=== PATIENT | male | born 1940 | race Caucasian/White ===

== ENCOUNTER 2022-05-09 10:05 | Emergency (ER) | payer MEDICARE, SELFPAY ==
--- NOTE | ~2022-05-09 | CT_ITS ---
EXAMINATION: CT abdomen pelvis w con DATE: 05/09/2022 13:38 INDICATION: Abdominal pain. Left groin lump. TECHNIQUE: Computed tomography (CT) of the abdomen and pelvis was performed with 100 CC Omnipaque 350 intravenous contrast. Automated exposure control and iterative reconstruction technique were employe d. Exam dose: 184.42 mGy-cm total exam DLP. COMPARISON: 05/09/2015 Limited abdominal ultrasound examination 10/12/2012 CT abdomen pelvis FINDINGS: No consolidation at the lung bases. Heart size is within upper normal range. No pericardial or pleural effusion. The gallbladder is present. No gallbladder wall thickening or pericholecystic fluid or fat stranding. No hepatic, splenic or pancreatic space-occupying mass lesion. Normal morphology of the adrenal glands. Occasional bilateral renal cysts, measuring up to 1.7 cm max imal dimension. Approximately 4 mm nonobstructing right renal calculus. Possible subtle pinpoint upper pole left anali l calculus. Approximately 3 x 4 mm probable lower pole nonobstructing left renal calculus. No ureteral calculus or hydroureteronephrosis. There is extensive calcification of the abdominal aorta and iliac arteries. No abdominal aortic aneur ysm. No intraperitoneal or retroperitoneal or pelvic mass lesion or adenopathy or ascites. There is prostate enlargement and calcification. There is mild to moderate diffuse bladder wall thick ening consistent with bladder outlet obstruction from the prostate enlargement. There are numerous diverticula of the sigmoid and to a lesser extent descending colon. No CT evidence of diverticulitis. No evidence of appendicitis. No bowel obstruction, bowel wall thickening, pneumatosis or intraperiton eal free air. Bilateral small fat-containing inguinal hernias. Occasional bilateral small nonenlarged groin lymph nodes. Small fat-containing umbilical hernia. No suspicious osteolytic or osteoblastic lesions. IMPRESSION: Bilateral small fat-containing inguinal hernias and small fat-containing umbilical herni a Occasional small nonenlarged bilateral groin lymph nodes Occasional bilateral renal cysts Mild bilateral nonobstructive nephrolithiasis Prostate enlargement and calcification Diverticulosis of the left colon; no evidence of diverticulitis Normal appendix Reviewed, dictated and finalized at [facility]. Reviewed, dictated and finalized at [facility]. CTOR PLANS IMPRESSION: Bilateral small fat-containing inguinal hernias and small fat-cont aining umbilical hernia Occasional small nonenlarged bilateral groin lymph nodes Occasional bilateral renal cysts Mild bilateral nonobstructive nephrolithiasis Prostate enlargement and calcification Diverticulosis of the left colon; no evidence of diverticulitis Normal appendix
[2022-05-09 11:01] VITALS: BP 136/70; PULSE 78; RESP 18; TEMP 36.8; O2SAT 99
--- NOTE | 2022-05-09 12:34 | ED.ABDPAIN ---
HPI - Abdominal Pain General Chief Complaint: Abdominal Pain Stated Complaint: lower abd pain Time Seen by Provider: 05/09/22 12:06 Source: RN notes reviewed History of Present Illness HPI narrative: Patient presents emergency room from home for left lower quadrant abdominal pain. Patient states he noticed the symptoms approximately 10 days ago while he was vacuuming. He states that he began to notice a lump down his left lower abdomen states that the lump has been there for approximately 3 days then had improved in size but will get larger when he stands up and improves and he lays down flat states the area is tender to palpation. States he has had a previous procedure for his prostate and was worried that it was a lump from that procedure he denies any fevers or chills nausea vomiting diarrhea but does state he does feel gassy at times Related Data Allergies Allergy/AdvReac Type Severity Reaction Status Date / Time Sulfa (Sulfonamide Allergy Unknown Verified 02/19/17 15:40 Antibiotics) Review of Systems Review of Systems: Gen.: Denies fevers or chills ENT: Denies congestion Respiratory: Denies shortness of breath or cough CV: Denies chest pain or palpitations GI: See HPI denies burning, urgency, frequency or hematuria Musculoskeletal: Denies back pain or muscle pain Neuro: Denies numbness, tingling, weakness or focal weakness Skin: Denies rash Except as documented, all other systems reviewed and negative [facility] Past Medical History Medical History (Updated 05/09/22 @ 14:26 by Humberto Orr DO) CAD in [place] artery GERD without esophagitis Family History Family History (Updated 02/19/17 @ 15:48 by DOCTOR UNKNOWN) Mother Family history of cardiovascular disease Social History Social History Smoking status: Former smoker Smoking end date: 06/23/1962 Alcohol intake: never Exam Narrative: APPEARANCE: No acute distress, nontoxic, resting in bed EYES: EOMI HEENT: Normocephalic, atraumatic, OMM RESPIRATORY: No respiratory distress Clear to auscultation bilaterally with no rhonchi wheezing or rales. CARDIOVASCULAR: Regular rate and rhythm without murmurs rubs or gallops. ABDOMINAL: Soft, nondistended tender palpation left lower quadrant no tenderness left upper quadrant, right upper quadrant right lower quadrant no rebound or guarding, left inguinal hernia palpated that is easily reducible and soft MUSCULOSKELETAl: Moves all extremities. No clubbing, cyanosis or edema. NEURO: Awake and alert. Following commands, speech normal, no focal deficits SKIN:: Warm, dry. No rashes lesions or abrasions PSYCHIATRIC: Normal affect/mood, Course Course Emergency Course: Discussed with patient results of workup and diagnosis. Discussed need for follow-up with primary care, proper use of medication, and reasons to return to the emergency department. Patient understands and agrees to current treatment plan Vital Signs Vital signs: Vital Signs Temperature 98.2 F 05/09/22 11:01 Pulse Rate 78 05/09/22 11:01 Respiratory Rate 18 05/09/22 11:01 Blood Pressure 136/70 05/09/22 11:01 Pulse Oximetry 99 05/09/22 11:01 Oxygen Delivery Room Air 05/09/22 11:01 Temperature 98.2 F 05/09/22 11:01 Pulse Rate 78 05/09/22 11:01 Respiratory Rate 18 05/09/22 11:01 Blood Pressure 136/70 05/09/22 11:01 Pulse Oximetry 99 05/09/22 11:01 Oxygen Delivery Room Air 05/09/22 11:01 MDM - Abdominal Pain Lab Data Result diagrams: 05/09/22 12:41 05/09/22 12:41 Labs: Lab Results 05/09/22 05/09/22 Range/Units 12:41 12:41 WBC 7.4 (4.5-10.0) K/mm3 RBC 4.46 L (4.6-6.20) M/mm3 Hgb 13.4 L (14.0-18.0) g/dL Hct 42.2 (42.0-52.0) % MCV 94.6 (80-100) fl MCH 30.0 (26-34) pg MCHC 31.8 L (32-36) g/dl RDW 12.9 (11.5-14.5) % Plt Count 266 (150-375) k/mm3 MPV 9.6 (7.4-10
[2022-05-09 12:46] LABS: Basophils Absolute Auto 0.1 K/mm3 (0.0-0.1); Basophils Percent Auto 1.1 % (0.2-1.2); Eosinophils Absolute Auto 0.2 K/mm3 (0-0.3); Eosinophils Percent Auto 2.3 % (0-4.4); Hematocrit 42.2 % (42.0-52.0); Hemoglobin 13.4 g/dL (14.0-18.0); Immature Granulocyte Absolute 0.02 K/mm3 (0.00-0.031); Immature Granulocyte Percent A 0.3 % (0-0.5); Lymphocytes Absolute Auto 1.75 K/mm3 (0.9-3.2); Lymphocytes Percent Auto 23.8 % (18.3-44.2); Mean Corpuscular HGB Conc 31.8 g/dl (32-36); Mean Corpuscular Volume 94.6 fl (80-100); Mean Platelet Volume 9.6 fl (7.4-10.4); Monocytes Absolute Auto 0.6 K/mm3 (0.1-0.6); Monocytes Percent Auto 7.9 % (2.6-8.5); Neutrophils Absolute Auto 4.8 K/mm3 (1.3-6.7); Neutrophils Percent Auto 64.6 % (45.5-73.1); Platelet Count Result 266 k/mm3 (150-375); Red Blood Count 4.46 M/mm3 (4.6-6.20); Red Cell Distribution Width 12.9 % (11.5-14.5); White Blood Count 7.4 K/mm3 (4.5-10.0)
[2022-05-09 12:55] LABS: Alanine Aminotransferase 20 U/L (6-50); Albumin Level 5.1 g/dL (3.5-5.1); Alkaline Phosphatase 110 U/L (38-126); Anion Gap 16 mmol/L (8-16); Aspartate Amino Transferase 38 U/L (17-59); Bilirubin,Total 0.6 mg/dL (0.2-1.3); Blood Urea Nitrogen 13 mg/dL (9-20); Carbon Dioxide 28 mmol/L (22-30); Chloride 98 mmol/L (98-107); Estimated CRCL calculation 58 ml/min; Estimated Glomerular Filt Rate > 60; Glucose 104 mg/dL (65-110); Lipase 61 U/L (23-300); Potassium 4.1 mmol/L (3.4-5.0); Sodium 142 mmol/L (137-145)
[2022-05-09 13:00] VITALS: BP 159/83; PULSE 64; RESP 16; O2SAT 100
[2022-05-09 14:45] VITALS: BP 138/72; PULSE 55; RESP 18; O2SAT 100
[2022-05-09 14:47] LABS: Appearance Urine Clear (Clear); Bilirubin Urine Negative (Negative); Blood Urine Trace-intact (Negative); Color Urine Yellow (Yellow); Glucose Urine UA Negative (Negative); Ketones Urine Negative (Negative); Leukocyte Esterase Ur Negative LEU/UL (Negative); Nitrate Urine Negative (Negative); Protein Urine Negative (Negative); Urobilinogen Urine 0.2 mg/dL (<2.0)
[2022-05-09 14:58] LABS: Mucus Urine Rare /lpf; RBC Urine 0-2 /hpf (0-2); Squamous Epithelial Cell Urine Rare /hpf (Few); WBC Urine 0-3 /hpf
[2022-05-09 15:07] LABS: Add Urine Microscopic? YES
== END 2022-05-09 15:49 | disposition home or self-care (01) ==
PROVIDERS: Emergency Provider Emergency Medicine
DX: K40.20 Bilateral inguinal hernia, without obstruction or gangrene, not specified as recurrent (principal); I25.10 Atherosclerotic heart disease of native coronary artery without angina pectoris; K21.9 Gastro-esophageal reflux disease without esophagitis
CPT/HCPCS: 36415; 74177; 80053; 81001; 83690; 85025; 99284; Q9967

== ENCOUNTER 2022-05-22 10:08 | Outpatient (CLI) | payer MEDICARE, SELFPAY ==
--- NOTE | 2022-05-22 10:32 | ECG_ITS ---
Measurements Intervals [place] Rate: 73 P: 76 IA: 116 QRS: 9 QRSD: 95 T: 89 QT: 368 QTc: 408 Interpretive Statements SINUS RHYTHM WITH SINUS ARRHYTHMIA WITH SHORT IA INTERVAL RSR' IN V1 OR V2, CONSIDER RIGHT VENTRICULAR HYPERTROPHY OR RIGHT VCD LEFT VENTRICULAR HYPERTROPHY AND ST-T CHANGE BORDERLINE ST-T WAVE ABNORMALITY- INF/HIGH LAT LEADS BASELINE ARTIFACT- I, II, AVR, AVL BORDERLINE ECG NO PREVIOUS ECG AVAILABLE FOR COMPARISON Electronically Signed On 05-22-2022 12:37:43 FACILITIES MANAGEMENT EXECUTIVE by Michael Rangel D.O.
== END 2022-05-22 10:09 | disposition home or self-care (01) ==
PROVIDERS: Visit Provider Surgery
DX: I25.10 Atherosclerotic heart disease of native coronary artery without angina pectoris (principal); R94.31 Abnormal electrocardiogram [ECG] [EKG]
CPT/HCPCS: 93005

== ENCOUNTER 2022-08-01 08:19 | Outpatient (CLI) | payer MEDICARE, SELFPAY ==
[2022-08-01 09:43] LABS: Cholesterol 241 mg/dL (0-200); HDL Direct 52 mg/dL; Triglycerides 66 mg/dL (<150)
[2022-08-01 09:54] LABS: LDL Cholesterol Direct 148 mg/dL
== END 2022-08-01 08:20 | disposition home or self-care (01) ==
LOC: ANHLAB 08:21
PROVIDERS: Visit Provider Internal Medicine Cardiovascular Disease
DX: E78.5 Hyperlipidemia, unspecified (principal)
CPT/HCPCS: 36415; 80061

== ENCOUNTER 2022-08-14 09:55 | Outpatient (CLI) | payer MEDICARE, SELFPAY ==
--- NOTE | ~2022-08-14 | US_ITS ---
EXAMINATION: US carotid duplex BI DATE: 08/14/2022 11:04 INDICATION: Other specified symptoms and signs of carotid artery disease TECHNIQUE: Grayscale, color Doppler, and pulsed Doppler images of the cervical carotid arteries were obtained. The degree of vessel stenosis is placed in one of the following categories: normal, <50%, 5 0-69%, >=70% but less than near-occlusion, near-occlusion, or total occlusion. Note that percent sten osis relative to normal distal artery lumen diameter is indirectly measured from velocity measurement s as described by Ty, et al. Radiology 2003; 229:340-346. Notes: Normal: Peak systolic velocity <125 centimeters/sec and no plaque <50%. Peak systolic velocity <125 ( EDV <40; ICA/CCA PSV ratio <2.0; used these factors only a tandem lesions or low cardiac output or co ntralateral disease) 50-69 %: PSV 125-230 (EDV 40-100; ratio 2-4) >= 70% but less than near occlusion: PSV greater than 230 (EDV > 100; ratio> 4.0) Near Occlusion: PSV that is variable; markedly narrowed lumen Occlusion: Absent flow on color/spectral Doppler and no lumen on lr scale. COMPARISON: None. FINDINGS: RIGHT: The right common carotid artery (CCA) peak systolic velocity (PSV) is 122 cm/s. The right internal ca rotid artery (ICA) PSV is 121 cm/s. The right ICA end-diastolic velocity (EDV) is 27 cm/s. The right ICA/CCA PSV ratio is 1.0. The external carotid artery (ECA) PSV is 145 cm/s. There is antegrade flow in the right vertebral artery. LEFT: The left CCA PSV is 100 cm/s. The left ICA PSV is 95 cm/s. The left ICA EDV is 26 cm/s. The left ICA/ CCA PSV ratio is 0.9. The ECA PSV is 45 cm/s. There is antegrade flow in the left vertebral artery. IMPRESSION: 1. Less than 50% stenosis in the right internal carotid artery by sonographic criteria. 2. Less than 50% stenosis in the left internal carotid artery by sonographic criteria. Reviewed, dictated and finalized at location [facility]. E TENDER IMPRESSION: 1. Less than 50% stenosis in the right internal carotid artery by sonographic c ana rosa. 2. Less than 50% stenosis in the left internal carotid artery by sonographic cr brice.
== END 2022-08-14 09:56 | disposition home or self-care (01) ==
PROVIDERS: Visit Provider Internal Medicine Cardiovascular Disease
DX: R09.89 Other specified symptoms and signs involving the circulatory and respiratory systems (principal); I65.23 Occlusion and stenosis of bilateral carotid arteries
CPT/HCPCS: 93880

== ENCOUNTER 2022-09-12 08:08 | Outpatient (CLI) | payer MEDICARE, SELFPAY | END 2022-09-12 08:09 | disposition home or self-care (01) | PROVIDERS: Visit Provider Surgery | DX: K40.20 Bilateral inguinal hernia, without obstruction or gangrene, not specified as recurrent (principal); Z01.818 Encounter for other preprocedural examination | CPT/HCPCS: 36415; 86850; 86900; 86901 ==

== ENCOUNTER 2022-09-17 01:28 | Day surgery (SDC) | payer MEDICARE, SELFPAY ==
--- NOTE | 2022-09-06 15:21 | PC.NURSE ---
Report to the Outpatient Waiting Room, entrance under the green pavilion located off [facility], at time __0800 on date _09/17/22 . Planned Procedure Time: __1000 . Time changes happen often and if your time is changed the preop area will call you the afternoon before. - You and your visitor will be asked to self-screen and do not enter if you have any COVID symptoms. - Only one visitor is requested with a max of two and NO children visitors are allowed at this time. - The patient visitor may be requested to leave or wait in car when not with patient due to distancing restrictions. - A mask is optional within the hospital at this time. Patients may have clear liquids (water, carbonated beverages, clear teas, apple juice) until 3 hours prior to surgery with a maximum of 20 ounces. - No food from midnight until time of surgery - Infants may have breast milk until 4 hours before surgery, infant formula 6 hours prior to surgery. - Children will be allowed to drink immediately following surgery. If applicable, please bring a bottle or sippy cup to assist with drinking. Juice, water, soda, and popsicles are readily available. For infants on formula, please bring formula the day of surgery. Pacifiers are allowed. Take the following medications with a SIP of water the morning of surgery: ___NONE DO NOT STOP ANY OF YOUR OTHER PRESCRIPTION MEDICATIONS PRIOR TO SURGERY ?EXCEPT THE FOLLOWING Medications to discontinue per physician ALL VITAMINS 3 DAYS PRE OP .LAST DOSE 09/13/22 HIBICLENS SHOWER MORNING OF SURGERY Please no make-up, nail indonesian, hairspray, perfume, deodorant, or body powder the day of surgery. No jewelry (including any body piercings) or valuables the day of surgery, leave them at home. Please take a shower or bath the night before, or the morning of, surgery with an antibacterial soap. Wear comfortable, loose fitting clothing. Children are encouraged to wear pajamas. - Jewelry must be removed prior to entering the operating room. Rings and piercings that are not removed may be cut off. - The hospital will not accept responsibility for valuables. - Please leave all valuables, including medications, at home the day of surgery. If you are going home after surgery, a licensed commercial driver's license driver must drive you home. - NO public transportation without another adult if you receive anesthesia. - We recommend that an adult stay with you for 24 hours following discharge. - We also recommend that you do not drive, make important decision, drink alcoholic beverages, or take any drugs that were not prescribed by your health care provider for at least 24 hours after your discharge time. For Pediatric surgeries, we recommend two adults accompany the child home. Follow any additional instructions given to you from your surgeon. If you or anyone in your household have experienced Covid symptoms in the past week, please notify your surgeon or the nurse liaison at the phone number below for possible testing. Telephone instructions given to __GRANDDAUGHTER YVONNE JAIN and asked if any additional questions and then verbalized understanding. Patient advised to call surgeon office or pre surgery nurse liaison [phone] if any additional questions.
[2022-09-06 15:29] VITALS: BMI 19.5
[2022-09-17] VITALS (12 sets, daily range): BP systolic 148–186; BP diastolic 69–100; PULSE 77–100; RESP 14–18; TEMP 36.6–36.7; O2SAT 93–100
--- NOTE | 2022-09-17 08:32 | P.PNAN_ITS ---
Anes - Initial Pre Proc Eval Procedure: Operation Date: 09/17/22 10:00 Proposed Procedures p Bilateral Laparoscopic Inguinal Hernia Repair with Mesh, Davinci Assisted - Fredi Betancourt DO Date/Time: 09/17/22 08:32 Surgeon: Fredi Betancourt DO Pre Op Diagnosis: Bilateral Inguinal Hernia Patient Data Age: 81 Gender: M Height: 1.73 m Weight: 58.1 kg Allergies Allergy/AdvReac Type Severity Reaction Status Date / Time Sulfa (Sulfonamide Allergy Unknown Itching/HIV Verified 09/06/22 15:10 Antibiotics) ES Home Medications Medication Instructions Recorded Confirmed Type apple cider vinegar 500 mg tablet 500 mg PO DAILY 07/31/22 09/06/22 History aspirin 81 mg tablet,delayed 81 mg PO DAILY 07/31/22 09/06/22 History release cyanocobalamin (vitamin B-12) 500 250 mcg PO DAILY 07/31/22 09/06/22 History mcg tablet niacin 500 mg tablet 500 mg PO DAILY 07/31/22 09/06/22 History ezetimibe 10 mg tablet 10 mg PO DAILY #30 tabs 08/02/22 09/06/22 Rx Patient hx anesthesia problems: none Family hx anesthesia problems: none Results Review: All pre-operative results and documents have been reviewed as part of the pre- operative evaluation. [facility] Past Medical History Medical History CAD in [place] artery GERD without esophagitis Family History Family History Mother Family history of cardiovascular disease Social History Social History Smoking packs per day: 1 Smoking cigarettes per day: 20.0 Years smoked: 10 Smoking pack-years: 10.00 Smoking status: Former smoker Tobacco type: cigarettes Smoking end date: 06/23/62 Alcohol intake: never Living arrangements: with family Spiritual care concerns: No Anes - Eval Final PreProcedure Day of Procedure 09/17/22 08:32 Patient weight: thin Heart: regular rate and rhythm Lungs: decreased breath sounds Airway: Mallampati scale class II Neurological: other (alert hard of hearing) Last oral intake: >/= 8 hours ASA classification: III Emergent: no Anesthetic plan: proceed Anesthesia type and monitoring: general ETT and standard monitoring Results Review: All pre-operative results and documents have been reviewed as part of the pre- operative evaluation. Informed Consent: The patient's anesthetic plan and its attendant risks and benefits were discussed with the patient/family/POA. Questions were solicited and answers provided to the satisfaction of the patient/family/POA.
[2022-09-17] MEDS: KETOROLAC 15 MG/ML VIAL (*BKC) IV PUSH (08:45)
[2022-09-17] MEDS: ACETAMINOPHEN 500 MG TABLET 1000 MG PO (08:45)
[2022-09-17] MEDS: LACTATED RINGERS 1,000 ML 30 ML IV CONT ×3 (08:45→13:44)
--- NOTE | 2022-09-17 10:13 | WPDHPUPDATE1 ---
History and Physical Update Update Date/Time: 09/17/22 10:13 History and Physical has been reviewed, including an updated exam of the patient. There are NO changes in the patient's condition. Risks, benefits, and alternatives have been discussed and questions answered. Patient agrees to proceed with procedure.
--- NOTE | 2022-09-17 10:13 | PM.IMHP ---
H&P: HPI History of Present Illness Date/Time: 09/17/22 10:13 Chief Complaint: Bilateral inguinal hernia Narrative: This is an 81-year-old man who presents for bilateral inguinal hernia repair. He reports no changes since last seen office. Review of Systems Review of Systems: All systems reviewed & are unremarkable except as noted in HPI and below Constitutional: Constitutional: Denies chills, Denies fever(s), Denies headache(s) and Denies weight loss Eyes: Eyes: Denies change in vision ENT: Denies dizziness, Denies headache(s), Denies neck mass and Denies throat swelling Cardiovascular: Cardiovascular: Denies chest pain, Denies lightheadedness and Denies dyspnea Respiratory: Respiratory: Denies cough, Denies dyspnea and Denies wheezing Gastrointestinal: Gastrointestinal: Denies abdominal pain, Denies change in bowel habits, Denies nausea and Denies vomiting Genitourinary: Genitourinary: Denies hematuria and Denies dysuria Musculoskeletal: Musculoskeletal: Reports as per HPI Integumentary/Breasts: Skin/Breast: Reports as per HPI Neurologic: Denies dizziness and Denies headache(s) Allergic/Immunologic: Allergic/Immunologic: Denies throat swelling and Denies wheezing PMFSH Past Medical History Medical History CAD in [place] artery GERD without esophagitis Family History Family History Mother Family history of cardiovascular disease Social History Social History Smoking packs per day: 1 Smoking cigarettes per day: 20.0 Years smoked: 10 Smoking pack-years: 10.00 Smoking status: Former smoker Tobacco type: cigarettes Smoking end date: 06/23/62 Alcohol intake: never Living arrangements: with family Spiritual care concerns: No Meds Home Medications and Allergies Home Medications Medication Instructions Recorded Confirmed Type apple cider vinegar 500 mg tablet 500 mg PO DAILY 07/31/22 09/06/22 History aspirin 81 mg tablet,delayed 81 mg PO DAILY 07/31/22 09/06/22 History release cyanocobalamin (vitamin B-12) 500 250 mcg PO DAILY 07/31/22 09/06/22 History mcg tablet niacin 500 mg tablet 500 mg PO DAILY 07/31/22 09/06/22 History ezetimibe 10 mg tablet 10 mg PO DAILY #30 tabs 08/02/22 09/06/22 Rx Allergies Allergy/AdvReac Type Severity Reaction Status Date / Time Sulfa (Sulfonamide Allergy Unknown Itching/HIV Verified 09/17/22 08:48 Antibiotics) ES Vital Signs Vital Signs - 24 hr 09/17/22 08:43 Temperature 36.7 C Pulse Rate 79 Respiratory Rate 14 Blood Pressure 164/69 H Pulse Oximetry 99 Oxygen Delivery Room Air Exam Const: General: no acute distress and alert Orientation/consciousness: patient oriented x3 HENMT: Head: normocephalic and atraumatic Ears: hearing grossly normal bilaterally Face/Nose/Sinus: Normal nares present Mouth: Yes Normal oral and palatal mucosa present Eyes: Periorbital: periorbital findings normal Sclera: sclerae normal EOM: EOMs intact bilaterally Neck: Neck: normal visual inspection, no lymphadenopathy and trachea midline Chest: Chest palpation & inspection: normal inspection of the chest Resp: Effort & Inspection: normal respiratory effort Auscultation: clear to auscultation bilaterally Cardio: Jugular venous distension: no JVD Rate: regular rate Rhythm: regular rhythm Heart sounds: S1 normal heart sound present and S2 normal heart sound present Peripheral pulses: Peripheral pulses 2+ throughout GI: Inspection: normal to inspection GI Palp: Yes Soft to palpation, No Tenderness to palpation present (GI), No Guarding due to palpation present (GI) and No Rebound tenderness present Percussion: Yes normal to percussion Auscultation: normal bowel sounds : General: Yes no CVA tenderness Scrotum: inguinal hernia bilateral Back/Spine/Pelvis
[2022-09-17] MEDS: ceFAZolin 2 GM/D5W 50 ML 2 GM/50 ML BAG IVPB (10:41)
[2022-09-17] MEDS: BUPIVACAINE/EPINEPHRINE 0.25% 50 ML VIAL 30 ML INFILTRATE (11:09)
--- NOTE | 2022-09-17 12:17 | W.PM.PROC2 ---
Procedure Note - Detailed Date of Procedure 09/17/22 Pre-op Diagnosis Bilateral Inguinal Hernia Post-op Diagnosis Same (Bilateral direct inguinal hernia) Procedure Performed Laparoscopic bilateral inguinal hernia repair with mesh, da Shazia assisted Surgeon Fredi Betancourt DO Anesthesia General and Local (0.5% bupivacaine with epinephrine) Indications This is an 81-year-old man who presented with bilateral inguinal hernias. He initially began noting left groin pain and a bulge and had to lay down and push it back in to reduce it. He went to the emergency department [address] showed evidence of bilateral inguinal hernias. He was found to have bilateral reducible inguinal hernias on physical exam. Discussions were made with the patient about treatment options and decision was made to proceed with robotic assisted laparoscopic bilateral inguinal hernia repair with mesh. Findings Laparoscopic bilateral hernia repair was performed. Patient was found to have bilateral direct inguinal hernias. A robotic transabdominal preperitoneal approach was utilized for repair. A wide preperitoneal pocket was created on each side and the hernia sac was reduced. Large 3DMax mid mesh was placed over each side overlying the entire myopectineal orifice. No specimens were obtained for pathology. Description of Procedure Procedure as well as risks, benefits, and alternatives were discussed with the patient. Written consent was obtained and placed in chart prior to procedure. Patient was brought back to surgical suite. He was placed supine on operating table. Time-out was done to confirm patient and procedure. He was then intubated by Anesthesia Department. His abdomen was prepped and draped in sterile fashion using chlorhexidine prep. 0.5% bupivacaine with epinephrine was infiltrated at each location for incision. A 12 millimeter transverse incision was made just superior to the umbilicus using a 15 blade scalpel. Blunt dissection was carried out down to the linea alba. A vertical incision was made at the linea alba using a 15 blade scalpel. The peritoneum was then bluntly entered. A 12 millimeter trocar was inserted and carbon dioxide insufflation was used to create a pneumoperitoneum. A camera was inserted and the abdominal cavity was inspected. The patient was placed in slight Trendelenburg position. An 8 millimeter incision was made on the right lateral abdomen and an 8 millimeter trocar was inserted under direct visualization. Another 8 millimeter incision was made in the left lateral abdomen and an 8 millimeter trocar was inserted under direct visualization. The robotic arms were brought up to the patient's bedside and secured to the ports. The camera and instruments were inserted. I then moved over to the robotic console and took control of the camera and instruments. After careful inspection of the abdominal cavity, I began scoring the peritoneum along the left lower quadrant using scissors with electrocautery. The preperitoneal plane was entered and this was carefully dissected caudally along the inferior epigastric vessels. Careful dissection with scissors with electrocautery and blunt dissection was used to continue this dissection. I dissected far enough laterally to allow for mesh placement, and also dissected medially to identify the pubic arch and Clem's ligament. The hernia sac was identified and carefully dissected posteriorly. The cord contents were also identified and the peritoneum was carefully dissected far enough posteriorly to allow for mesh placement. Once an adequate pocket was created, I then placed the mesh within the preperitoneal pocket and carefully unfolded it. The mesh was centered on the hernia defect with adequate overlap circumferentially. The inferior edge of the mesh was inspected to ensure that it was far enough away from the peritoneal edge. The mesh appeared in proper position overlying the entire myopectinea
[2022-09-17] MEDS: fentaNYL CITRATE INJ (*CRX) 100 MCG/2 ML VIAL 25 MCG IV PUSH ×3 (12:59→13:05)
[2022-09-17] MEDS: ONDANSETRON INJ 4 MG/2 ML VIAL IV PUSH (13:13)
[2022-09-17] MEDS: HALOPERIDOL LACTATE 5 MG/ML VIAL 1 MG IV PUSH (13:34)
== END 2022-09-17 15:30 | disposition home or self-care (01) ==
PROVIDERS: Visit Provider Surgery
PROC: 8E0Y4CZ Robotic Assisted Procedure of Lower Extremity, Percutaneous Endoscopic Approach (ICD-10-PCS; CPT 49650; principal; 2022-09-17 10:00)
DX: K40.20 Bilateral inguinal hernia, without obstruction or gangrene, not specified as recurrent (principal); I25.10 Atherosclerotic heart disease of native coronary artery without angina pectoris; K21.9 Gastro-esophageal reflux disease without esophagitis; Z87.891 Personal history of nicotine dependence; Z79.82 Long term (current) use of aspirin
CPT/HCPCS: 49650; S2900; A9270; C1781; J0690; J1630; J1885; J2405; J2704; J3010; J7120

== ENCOUNTER 2022-11-11 12:12 | Outpatient (CLI) | payer MEDICARE, SELFPAY ==
[2022-11-11 13:09] LABS: Alanine Aminotransferase 15 U/L (6-50); Albumin Level 4.3 g/dL (3.5-5.1); Alkaline Phosphatase 91 U/L (38-126); Anion Gap 4 mmol/L (8-16); Aspartate Amino Transferase 27 U/L (17-59); Bilirubin,Total 0.5 mg/dL (0.2-1.3); Blood Urea Nitrogen 19 mg/dL (9-20); Calcium 8.9 mg/dL (8.4-10.2); Carbon Dioxide 35 mmol/L (22-30); Chloride 97 mmol/L (98-107); Cholesterol 198 mg/dL (0-200); Estimated Glomerular Filt Rate > 60; Glucose 119 mg/dL (65-110); HDL Direct 50 mg/dL; Potassium 4.6 mmol/L (3.4-5.0); Sodium 136 mmol/L (137-145); Triglycerides 113 mg/dL (<150)
[2022-11-11 13:20] LABS: LDL Cholesterol Direct 120 mg/dL
== END 2022-11-11 12:13 | disposition home or self-care (01) ==
PROVIDERS: Visit Provider Internal Medicine Cardiovascular Disease
DX: E78.5 Hyperlipidemia, unspecified (principal)
CPT/HCPCS: 36415; 80053; 80061

== ENCOUNTER 2022-12-08 07:52 | Emergency (ER) | payer MEDICARE, SELFPAY ==
--- NOTE | ~2022-12-08 | XR_ITS ---
XR abdomen/kub 1V DATE: 12/08/2022 09:45 INDICATION: Right ureteral calculus. Right flank pain. TECHNIQUE: 2 supine AP views at approximately 5 mm calcified calculus overlies the right ureter at th e upper L4 level, corresponding to the location of the calculus on current CT abdomen pelvis. COMPARISON: None FINDINGS: An approximately 5 mm calcified calculus overlies the right ureter at the upper L4 level, c orresponding to the location of the calculus on the current CT abdomen pelvis. There is a prominent amount of hematoma rectum and colon. No bowel obstruction is evident. No viscero megaly is detected. There is extensive calcification of the abdominal aorta and iliac arteries. Osteopenia. IMPRESSION: 5 mm calcified calculus at right ureter at upper L4 level Reviewed, dictated and finalized at [facility] Reviewed, dictated and finalized at [facility].
--- NOTE | ~2022-12-08 | CT_ITS ---
EXAMINATION: CT abdomen pelvis wo con DATE: 12/08/2022 08:21 INDICATION: Right flank pain. Nausea, vomiting. History kidney stones. TECHNIQUE: Computed tomography (CT) of the abdomen and pelvis was performed without intravenous contr ast. Automated exposure control and iterative reconstruction technique were employed. Exam dose: 179 .64 mGy-cm total exam DLP. COMPARISON: 05/09/2022 CT abdomen pelvis FINDINGS: The lung bases are clear of infiltrate or consolidation. Heart size is within normal range. No pericardial or pleural effusion. The liver, gallbladder, spleen, pancreas and bile ducts and pancreatic duct appear unremarkable on th is limited noncontrast examination. Occasional bilateral renal cysts. Mild nonobstructive bilateral nephrolithiasis. There is however moderate right hydroureteronephrosis secondary to a 3.8 x 5 x 5.8 mm calculus of the right ureter at the upper L4 level. There is extensive calcification of the abdominal aorta and calcification of celiac, superior mesente nanci, renal and inferior mesenteric as well as bilateral iliac and femoral arteries. No abdominal aort ic aneurysm. No intraperitoneal or retroperitoneal or pelvic mass lesion or adenopathy or ascites. There is prostate enlargement and calcification. There is moderate diffuse thickening of the urinary bladder wall consistent with bladder outlet obstruction due to prostatomegaly. There are numerous diverticula of the colon, especially the sigmoid and descending colon; no CT evide nce of diverticulitis is noted. No bowel obstruction or intraperitoneal free air is detected. Normal appendix. Small fat-containing umbilical hernia. Diffuse osteopenia. Mild degenerative change of the thoracic and lumbar spine. IMPRESSION: Grossly 5.8 mm obstructing calculus of the right ureter at the upper L4 level with moder ate proximal right hydroureteronephrosis Mild bilateral nonobstructive nephrolithiasis Occasional bilateral renal cysts Diverticulosis of the colon Normal appendix Reviewed, dictated and finalized at [facility]. Reviewed, dictated and finalized at [facility]. IMPRESSION: Grossly 5.8 mm obstructing calculus of the right ureter at the upp er L4 level with moderate proximal right hydroureteronephrosis Mild bilateral nonobstructive nephrolithiasis Occasional bilateral renal cysts Diverticulosis of the colon Normal appendix
[2022-12-08 07:59] VITALS: BP 153/84; PULSE 84; RESP 16; TEMP 37; O2SAT 99
[2022-12-08] MEDS: ONDANSETRON INJ 4 MG/2 ML VIAL IV PUSH (08:27)
[2022-12-08 08:30] VITALS: BP 154/77; PULSE 75; RESP 116; O2SAT 99
[2022-12-08 08:32] LABS: Basophils Absolute Auto 0.1 K/mm3 (0.0-0.1); Basophils Percent Auto 0.9 % (0.2-1.2); Eosinophils Percent Auto 0.4 % (0-4.4); Hematocrit 36.8 % (42.0-52.0); Hemoglobin 11.6 g/dL (14.0-18.0); Immature Granulocyte Absolute 0.03 K/mm3 (0.00-0.031); Immature Granulocyte Percent A 0.4 % (0-0.5); Lymphocytes Absolute Auto 1.82 K/mm3 (0.9-3.2); Mean Corpuscular HGB Conc 31.5 g/dl (32-36); Mean Corpuscular Hemoglobin 29.7 pg (26-34); Mean Corpuscular Volume 94.1 fl (80-100); Mean Platelet Volume 10.1 fl (7.4-10.4); Monocytes Absolute Auto 0.7 K/mm3 (0.1-0.6); Neutrophils Percent Auto 65.3 % (45.5-73.1); Platelet Count Result 270 k/mm3 (150-375); Red Blood Count 3.91 M/mm3 (4.6-6.20); Red Cell Distribution Width 12.7 % (11.5-14.5); White Blood Count 7.6 K/mm3 (4.5-10.0)
[2022-12-08 08:57] LABS: Alanine Aminotransferase 17 U/L (6-50); Albumin Level 4.4 g/dL (3.5-5.1); Alkaline Phosphatase 96 U/L (38-126); Anion Gap 9 mmol/L (8-16); Aspartate Amino Transferase 31 U/L (17-59); Bilirubin,Total 0.6 mg/dL (0.2-1.3); Blood Urea Nitrogen 22 mg/dL (9-20); Calcium 9.4 mg/dL (8.4-10.2); Carbon Dioxide 28 mmol/L (22-30); Chloride 99 mmol/L (98-107); Estimated CRCL calculation 51 ml/min; Estimated Glomerular Filt Rate > 60; Glucose 139 mg/dL (65-110); Potassium 4.1 mmol/L (3.4-5.0); Sodium 136 mmol/L (137-145)
[2022-12-08 09:01] LABS: Appearance Urine Clear (Clear); Bacteria Urine None Seen /hpf; Bilirubin Urine Negative (Negative); Blood Urine 3+ (Negative); Color Urine Yellow (Yellow); Glucose Urine UA Negative (Negative); Ketones Urine 1+ mg/dL (Negative); Leukocyte Esterase Ur Trace LEU/UL (Negative); Nitrate Urine Negative (Negative); Protein Urine 1+ mg/dL (Negative); RBC Urine >100 /hpf (0-2); Specific Grav Ur 1.018 (1.001-1.035); Squamous Epithelial Cell Urine None seen /hpf (Few); Urobilinogen Urine 0.2 mg/dL (<2.0); WBC Urine 0-5 /hpf; pH Urine 5.5 (5.0-9.0)
[2022-12-08 09:22] LABS: Add Urine Microscopic? YES
--- NOTE | 2022-12-08 10:03 | ED.MALEGU ---
HPI - Male Genitourinary General Chief complaint: Urogenital-Male Stated complaint: ? kidney stone/nausea Time Seen by Provider: 12/08/22 07:56 History of Present Illness HPI Narrative: Patient is an 82-year-old male who presents to the ER with sudden onset right flank and abdominal pain. Began last night. Waxes and wanes in intensity. Began having some nausea and vomiting and came to the ER. Has history of kidney stones and this feels similar. Denies urinary frequency urgency or dysuria. No blood in the urine. No alleviating factors. Related Data Home Medications Medication Instructions Recorded Confirmed aspirin 81 mg tablet,delayed 81 mg PO DAILY 07/31/22 11/15/22 release cyanocobalamin (vitamin B-12) 500 250 mcg PO DAILY 07/31/22 11/15/22 mcg tablet niacin 500 mg tablet 500 mg PO DAILY 07/31/22 11/15/22 Allergies Allergy/AdvReac Type Severity Reaction Status Date / Time Sulfa (Sulfonamide Allergy Unknown Itching/HIV Verified 11/15/22 12:47 Antibiotics) ES Review of Systems Review of Systems: All systems reviewed & are unremarkable except as noted in HPI and below Constitutional: Constitutional: Denies chills, Denies fatigue and Denies fever(s) ENT: Denies nasal congestion and Denies sore throat Cardiovascular: Cardiovascular: Denies chest pain, Denies rapid heart rate and Denies radiating jaw, neck or arm pain Gastrointestinal: Gastrointestinal: Reports abdominal pain, Denies diarrhea, Reports nausea and Reports vomiting Genitourinary: Genitourinary: Denies hematuria, Denies dysuria and Denies urinary frequency PMFSH Past Medical History Medical History CAD in [place] artery GERD without esophagitis Surgical History Surgical History H/O bilateral inguinal hernia repair lap BIH re w/ mesh, Da Shazia assisted 09/17/22 Family History Family History Mother Family history of cardiovascular disease Social History Social History Smoking packs per day: 1 Smoking cigarettes per day: 20.0 Years smoked: 10 Smoking pack-years: 10.00 Smoking status: Former smoker Tobacco type: cigarettes Smoking end date: 06/23/62 Alcohol intake: never Living arrangements: with family Spiritual care concerns: No Exam Narrative: GENERAL: Well-appearing, well-nourished, and in no acute distress. HEAD: Normocephalic, atraumatic. EYES: PERRL and EOMI. ENT: Mucous membranes moist. CHEST: Clear to auscultation. No respiratory distress. HEART: Regular rate and rhythm. Normal peripheral pulses. ABDOMEN: Soft, nontender, nondistended. EXTREMITIES: Normal range of motion. No edema. SKIN: Warm, dry, no rash. NEURO: Alert and oriented x3. PSYCH: Normal mood and affect. Course Course Emergency Course: Patient resting comfortably. Informed of 5.8 mm ureterolithiasis. Discussed treatment plan for home with hydration as well as pain medication. Patient also be placed on Flomax. No pain at this time. Patient verbalized understanding. Discussed that imaging could see the stone on KUB and should she need to he can see a urologist. Vital Signs Vital signs: Vital Signs Temperature 98.6 F 12/08/22 07:59 Pulse Rate 84 12/08/22 07:59 Respiratory Rate 16 12/08/22 07:59 Blood Pressure 153/84 H 12/08/22 07:59 Pulse Oximetry 99 12/08/22 07:59 Oxygen Delivery Room Air 12/08/22 07:59 Temperature 98.6 F 12/08/22 07:59 Pulse Rate 75 12/08/22 08:30 Respiratory Rate 116 H 12/08/22 08:30 Blood Pressure 154/77 H 12/08/22 08:30 Pulse Oximetry 99 12/08/22 08:30 Oxygen Delivery Room Air 12/08/22 07:59 MDM - Male Genitourinary Lab Data 12/08/22 08:25 12/08/22 08:25 Labs: Lab Results 11/21
== END 2022-12-08 11:27 | disposition home or self-care (01) ==
PROVIDERS: Emergency Provider Emergency Medicine
DX: N13.2 Hydronephrosis with renal and ureteral calculous obstruction (principal); K21.9 Gastro-esophageal reflux disease without esophagitis
CPT/HCPCS: 36415; 74018; 74176; 80053; 81001; 85025; 96374; 99284; J2405

== ENCOUNTER 2023-05-10 10:01 | Outpatient (CLI) | payer MEDICARE, SELFPAY ==
[2023-05-10 10:55] LABS: Cholesterol 228 mg/dL (0-200); HDL Direct 54 mg/dL; Triglycerides 56 mg/dL (<150)
[2023-05-10 11:05] LABS: LDL Cholesterol Direct 130 mg/dL
== END 2023-05-10 10:02 | disposition home or self-care (01) ==
PROVIDERS: Visit Provider Internal Medicine Cardiovascular Disease
DX: E78.5 Hyperlipidemia, unspecified (principal)
CPT/HCPCS: 36415; 80061

== ENCOUNTER 2024-01-30 10:52 | Outpatient (CLI) | payer MEDICARE, SELFPAY ==
[2024-01-30 14:01] LABS: Alanine Aminotransferase 15 U/L (6-50); Albumin Level 4.4 g/dL (3.5-5.1); Alkaline Phosphatase 85 U/L (38-126); Anion Gap 11 mmol/L (4-12); Aspartate Amino Transferase 32 U/L (17-59); Bilirubin,Total 0.6 mg/dL (0.2-1.3); Blood Urea Nitrogen 23 mg/dL (9-20); Calcium 9.4 mg/dL (8.4-10.2); Carbon Dioxide 28 mmol/L (22-30); Chloride 98 mmol/L (98-107); Cholesterol 188 mg/dL (0-200); Estimated Glomerular Filt Rate > 60; Glucose 102 mg/dL (65-110); HDL Direct 50 mg/dL; Potassium 4.4 mmol/L (3.4-5.0); Sodium 137 mmol/L (137-145); Triglycerides 76 mg/dL (<150)
[2024-01-30 14:12] LABS: LDL Cholesterol Direct 106 mg/dL
== END 2024-01-30 10:53 | disposition home or self-care (01) ==
LOC: ANHLAB 10:54
PROVIDERS: Visit Provider Internal Medicine Cardiovascular Disease
DX: E78.5 Hyperlipidemia, unspecified (principal)
CPT/HCPCS: 36415; 80053; 80061